=== PATIENT | male | born 1970 | race Caucasian/White ===

== ENCOUNTER 2017-02-11 09:42 | Observation (INO) ==
[2017-02-11] MEDS ORDERED: ZOFRAN ONE (11:04)
[2017-02-11] MEDS ORDERED: MORPHINE ONE (11:05)
[2017-02-11] MEDS ORDERED: TYLENOL PO PRN (11:12)
[2017-02-11] MEDS ORDERED: MORPHINE IV PRN ×2 (11:12→12:51)
[2017-02-11] MEDS ORDERED: PHENERGAN IV PRN ×2 (11:12→18:59)
[2017-02-11] MEDS: NS 1,000 ML IV SCH ×2 (11:12→19:56)
[2017-02-11] MEDS ORDERED: ZOFRAN IV PRN (11:12)
[2017-02-11] MEDS ORDERED: SODIUM CHLORIDE 0.9% INJ PRN (11:12)
[2017-02-11 11:18] LABS: MANUAL DIFF NEEDED? NO
[2017-02-11 11:21] LABS: BASO% 0.3 % (0.0-0.8); EOS# 0.06 X1000 (0.0-0.7); EOS% 0.8 % (0.0-10.0); HEMATOCRIT 44.6 % (42.0-52.0); IMM GRAN# 0.04 X1000 (0.0-0.04); IMM GRAN% 0.5 % (0.0-0.5); LYMPH# 1.14 X1000 (1.2-3.4); MCH 32.1 PG (27-31); MCHC 35.9 g/dL (33-37); MCV 89.4 FL (81-99); MONO# 0.64 X1000 (0.11-0.59); MONO% 8.4 % (1.7-9.3); MPV 10.5 FL (7.4-10.4); PLT 209 X1000 (130-400); RBC 4.99 XMIL (4.7-6.1)
[2017-02-11 11:39] LABS: AGAP 11; BUN 14 mg/dL (8-22); CALCIUM 9.4 mg/dL (8.8-10.2); CHLORIDE 102 mmol/L (98-107); COSMO 280; POTASSIUM 4.2 mmol/L (3.5-5.1); SODIUM 140 mmol/L (136-145); TCO2 27 mmol/L (25-35)
[2017-02-11 11:47] LABS: URINE CULTURE NEEDED? NO; URINE MICRO REVIEW NEEDED? NO; URINE SOURCE CLEAN CATCH
[2017-02-11 11:56] LABS: BILIRUBIN URINE NEGATIVE (NEGATIVE); BLOOD URINE LARGE (NEGATIVE); COLOR YELLOW; GLUCOSE URINE NEGATIVE (NEGATIVE); LEUKOCYTES URINE NEGATIVE (NEGATIVE); NITRITE URINE NEGATIVE (NEGATIVE); PROTEIN URINE 30 mg/dL (NEGATIVE); SP GRAVITY URINE 1.023; TURBIDITY URINE CLEAR (CLEAR); UROBILINOGEN URINE NORMAL (NORMAL)
[2017-02-11 11:57] LABS: UR EPITHELIAL CELLS <10 /HPF (<10); URINE BACTERIA NEGATIVE /HPF; URINE RBC TNTC /HPF (<10); URINE WBC <10 /HPF (<10)
--- NOTE | 2017-02-11 12:09 | Diag Imaging Result Doc PS360 ---
EXAM: CT RENAL STONE SEARCH INDICATION: LEFT FLANK PAIN WITH HISTORY OF STONES TECHNIQUE: Dose reduction protocol was used. COMPARISON: 03/21/2015 FINDINGS: There is minimal subsegmental atelectasis at the lung bases. There is a cluster of fine nodules at the left lung base that can be seen on a previous study dated 01/05/2014 and are most compatible with granulomata. There are several calcified granulomata in the spleen. The liver, gallbladder, adrenal glands, and pancreas are unremarkable. There is bilateral nephrolithiasis including an obstructing stone at the left UPJ that measures up to 10 mm in the greatest axial dimension. There is mild to moderate left hydronephrosis and left perinephric stranding consistent with obstructive uropathy. However, no definite this stone was also present in the same place and there is also hydronephrosis on the previous study from 2014. This stone probably intermittently obstructs the UPJ. No other obstructing stones are identified along the courses of the ureters. The urinary bladder is largely nondistended and is essentially unremarkable, otherwise. The appendix is normal. The GI tract is essentially unremarkable. IMPRESSION: 1.Bilateral nephrolithiasis with an obstructing 10 mm stone at the left UPJ with associated mild to moderate left hydronephrosis indicating obstructive uropathy. Please see the above discussion. 2.Other incidental/nonacute findings detailed above. Electronically signed by Bubba Hawley 02/11/2017 12:07 PM
[2017-02-11] MEDS: FLOMAX PO SCH (12:20)
[2017-02-11] MEDS ORDERED: MORPHINE IV ONE (12:29)
[2017-02-11] MEDS ORDERED: DILAUDID IV PRN (18:57)
--- NOTE | 2017-02-12 03:34 | HISTORY AND PHYSICAL ---
DATE: 02/11/2017 CHIEF COMPLAINT: Left flank pain. HISTORY OF PRESENT ILLNESS: Mr. Ezio Oliver is a 46-year-old gentleman with a history of recurrent nephrolithiasis. He was hospitalized in March of 2015 with a distal obstructing stone and hydronephrosis. He underwent extracorporeal shockwave lithotripsy, as well as he presented to the hospital this morning complaining of sudden onset of left flank pain with radiation of pain into his groin. At times he has had difficulty voiding. He has not seeing any gross blood. He denied any nausea or vomiting. A CT IVP demonstrated bilateral nephrolithiasis with an obstructing 10 mm stone at the left UPJ, with associated mild to moderate left hydronephrosis. PAST MEDICAL HISTORY: Recurrent nephrolithiasis. PAST SURGICAL HISTORY: 1. I and D of a peritonsillar abscess. 2. Microdiscectomy at L5-S1. 3. Multiple lithotripsies. ALLERGIES: No known drug allergies. FAMILY HISTORY: Father had hypertension and embolic cerebrovascular accident. SOCIAL HISTORY: He does not smoke. He does consume alcoholic beverages. He is and has 3 children. MEDICATIONS: No routine medications. REVIEW OF SYSTEMS: He denies any recent weight gain or weight loss.HEENT: No loss of visual or auditory acuity. Cardiovascular: No chest pain, palpitations, or anginal equivalents. Pulmonary: No shortness of breath, paroxysmal nocturnal dyspnea, or orthopnea. Gastrointestinal: No reflux, dysphagia, melena, hematochezia, change in bowel habits, or rectal bleeding. Endocrine: No polyuria, no polydipsia. No cold or heat intolerance. Skin: No easy bruisability. /Rectal Exam: Deferred. Neurologic: Nonfocal. PHYSICAL EXAMINATION: Vital signs: Temperature 97.9 degrees, pulse 59, respirations 18, blood pressure 143/71. General Appearance: This is a well-developed, well-nourished, 46-year-old gentleman in no apparent distress. He does have significant left-sided flank pain. Neck: Supple. No masses, jugular venous distention, or bruits. Cardiovascular: Regular rate and rhythm. Lungs: Clear. Abdomen: Soft, nontender, with active bowel sounds. Back: Left costovertebral angle tenderness. and Rectal Exam: Deferred. Extremities: Without edema. Neurologic: Nonfocal. A CBC demonstrated a white count of 7.6, hemoglobin 16, hematocrit 44, and a platelet count of 209,000. Electrolytes demonstrated the following: Sodium 140, potassium 4.2, chloride 102, BUN 14, creatinine 1.2. Urinalysis demonstrated large blood. ASSESSMENT AND PLAN: Distal left ureteral stone with obstruction and left-sided hydronephrosis. I am going to admit the patient to [facility]. I will rehydrate him with normal saline at 125 mL/h. We will treat his nausea on a p.r.n. basis with Zofran. We will use morphine 2-4 mg IV q.4 hours p.r.n. pain. Because of the size of the obstructing stone, I do not believe that he will be able to pass it. Potentially he would benefit from lithotripsy. We have consulted Dr. Garza to see him. I will check a uric acid, PTH, and serum calcium today. He has had previously elevated uric acid levels and took allopurinol. He has been off the allopurinol for several months. In anticipation that he will undergo surgery later today, I am holding Lovenox. Given his clinical presentation, I believe that admission to the hospital is reasonable and necessary. Hydronephrosis can lead to acute renal failure. His creatinine was 1.2. He requires fluids and aggressive pain management. At this point in time, I anticipate that he will be in the hospital for only 1 midnight and I will; therefore, place him in outpatient status with observation services. cc: Steffany Pinzon MD
--- NOTE | 2017-02-12 05:07 | CONSULTATION ---
DATE OF CONSULTATION: 02/11/2017 ATTENDING AND REFERRING PHYSICIAN: Quentin Pinzon MD HISTORY OF PRESENT ILLNESS: This is a 46-year-old male with long history of renal lithiasis, developed severe left flank pain with nausea and vomiting. Evaluation with a CT stone search revealed small bilateral renal stones and a 10 mm stone at the left ureteral pelvic junction that was obstructing. The patient has had shockwave lithotripsy previously. The last time, in 2014. He denies any voiding problems. He may have had blood in his urine. PAST MEDICAL HISTORY: Renal lithiasis. Otherwise negative. CURRENT MEDICATIONS: Documented on the chart and include Flomax. PAST SURGICAL HISTORY: Tonsillectomy, shockwave lithotripsy. SOCIAL HISTORY: No tobacco use. Social use of alcohol. ALLERGIES: No known drug allergies. REVIEW OF SYSTEMS: Usually in good health. He denies any problems with heart disease, strokes, seizures, pulmonary, or bowel problems. He has no history of diabetes. PHYSICAL EXAMINATION: General: A well-developed, well-nourished, age apparent, white male, oriented in all ways and cooperative. HEENT: Normal for age. Lungs: Clear. Cardiovascular: Regular rate and rhythm. Abdomen: Flat, soft, nontender. No hepatosplenomegaly or masses. Normal bowel sounds. Back: Mild left CVA tenderness. : Normal male. Both testes down. Scrotal exam is normal. Extremities: No clubbing, cyanosis, or edema. Neuro: No focal deficits. DATA: CT scan is as noted in the History of Present Illness. LABORATORY EVALUATION: He has a white count of 7.61, hemoglobin 16.0, hematocrit of 44.6, platelets are 209,000. Serum electrolytes are normal. BUN 14, creatinine 1.2. Urinalysis has [id number]-[id number]-rv-count red cells per high-powered field and less than 10 white cells. Dipstick for bacteria were negative. IMPRESSION: 1. Bilateral renal stones. 2. Obstructing left ureteropelvic junction stone. RECOMMEND: Cystoscopic exam and place left double-J stent. This will relieve his severe left flank pain. He will then be scheduled for left extracorporeal shockwave lithotripsy. This was discussed with the patient and . They seemed to understand and desire to proceed. The planned procedure, benefits versus risks and possible complications, including, but not limited to, bleeding, infection, not being able to break up the stone, need for further stone surgery was discussed. cc: MD Steffany Shah MD
[2017-02-12] MEDS ORDERED: XYLOCAINE-MPF 2% ONE (07:05)
[2017-02-12] MEDS ORDERED: DIPRIVAN 1% ONE (07:05)
[2017-02-12] MEDS ORDERED: REGLAN ONE (07:18)
[2017-02-12] MEDS ORDERED: PEPCID ONE (07:19)
[2017-02-12] MEDS ORDERED: KEFZOL 1 GM/D5W 1 GM/50 ML IVPB ONE (07:32)
[2017-02-12] MEDS ORDERED: DECADRON ONE (07:50)
[2017-02-12] MEDS ORDERED: ZOFRAN ONE (07:51)
--- NOTE | 2017-02-12 08:46 | Diag Imaging Result Doc PS360 ---
EXAM: FLUOROSCOPY CYSTO INDICATION: LT. STENT PLACEMENT TECHNIQUE: COMPARISON: 01/02/2013 FINDINGS: 38 spot fluoroscopic images were provided, which were performed during left ureteral stent placement by Dr. Donta Garza. The obstructing stone at the left UPJ seen on a recent CT is identified. On the final image, the newly placed left ureteral stent is identified in the expected position. IMPRESSION: As above, please correlate with live fluoroscopic imaging. Electronically signed by Bubba Hawley 02/12/2017 8:44 AM
[2017-02-12] MEDS ORDERED: DITROPAN PO PRN ×2 (08:58→09:01)
[2017-02-12] MEDS ORDERED: ZYLOPRIM PO SCH (09:00)
[2017-02-12] MEDS ORDERED: PERIDEX MT SCH (09:00)
[2017-02-12] MEDS ORDERED: PERCOCET-5 PO PRN (09:03)
[2017-02-12] MEDS: FLOMAX PO SCH (09:42)
[2017-02-12] MEDS ORDERED: FLUZONE QUAD 2017-2018 SYRINGE IM ONE (10:39)
[2017-02-12 12:14] VITALS: BP 117/77
--- NOTE | 2017-02-13 04:46 | OPERATIVE NOTE ---
PROCEDURE DATE: 02/12/2017 SURGEON: Donta Garza MD PREOPERATIVE DIAGNOSIS: Left ureteropelvic junction stone with moderate obstruction. POSTOPERATIVE DIAGNOSIS: Left ureteropelvic junction stone with moderate obstruction. PROCEDURE PERFORMED: Cystoscopic exam. Placed left double-J stent. ANESTHESIA: General via laryngeal mask. FINDINGS: Cystoscopic exam: Urethra-greater than 21 Portuguese, without stricture. Prostate-mild hypertrophy of the lateral lobes. Elevated bladder neck, length approximately 3.5 to 4 cm. Bladder-normal ureteral orifices bilaterally. No papillary lesions. No trabeculations. No diverticula. Fluoroscopic exam revealed an approximate 12 mm left UPJ stone. INDICATIONS FOR PROCEDURE: This 46-year-old male with long history of renal lithiasis developed left flank pain. Evaluation revealed an obstructing left UPJ stone. DESCRIPTION OF PROCEDURE: After informed consent was obtained the patient, him receiving IV antibiotics, he was taken to the main OR cystoscopy room and placed in the supine position. General anesthesia via laryngeal mask was achieved. He was then placed in the low lithotomy position and prepped and draped in the usual sterile fashion for cystoscopic exam. A 21-Portuguese sheath cystoscope was passed through the patient's urethra, prostate, and into the bladder without difficulty. Findings are as noted above. A 0.035 zip wire was passed through the cystoscope, engaged left ureteral orifice, and advanced up the ureter. When it came to this stone, it required much manipulation to push the wire past the stone. A 6-Portuguese, 26 cm double-J stent was passed over the zip wire and it also required much manipulation before the stent pushed the stone back into the renal pelvis. The wire was removed. The stent appeared in good position. The stent removal string was removed. The bladder was drained. Cystoscope was removed. Rectal exam was performed that revealed a prostate of about 35-40 g, smooth, and symmetric. He tolerated the procedure well. ESTIMATED BLOOD LOSS: Zero. He was taken to recovery room in good condition. cc: MD Steffany Shah MD
--- NOTE | 2017-02-13 06:47 | DISCHARGE SUMMARY ---
ADMISSION DATE: 02/11/2017 DISCHARGE DATE: 02/12/2017 DISCHARGE DIAGNOSIS: Bilateral nephrolithiasis with an obstructing 10 mm stone at the left ureteropelvic junction, with associated mild to moderate left hydronephrosis. DISCHARGE INSTRUCTIONS: 1. The patient has been instructed to call Dr. Nirav Garza on Wednesday in order to set up surgical time for an extracorporal sound wave lithotripsy of the aforementioned stone. 2. Activity as tolerated. 3. Regular diet. 4. Medications: Allopurinol 300 mg daily, Percocet 5 one p.o. q.4-6 hours p.r.n. pain, Ditropan 5 mg q.8 hours p.r.n. bladder spasms, Flomax 0.4 mg daily for 7 days. DISCHARGE PHYSICAL EXAMINATION: General Appearance: This is a well-developed, well-nourished, 46- year-old, gentleman in no apparent distress. Vital Signs: He is afebrile. Vital signs are stable. Cardiovascular: Regular rate and rhythm. Lungs: Clear. Abdomen: Soft, nontender, with active bowel sounds. REFERRING PHYSICIAN: Mr. Ezio Oliver was admitted to [facility] with a distal obstructing 10 mm left ureteral stone at the left UPJ, with mild to moderate hydronephrosis. The patient was admitted for fluid resuscitation and pain management. Dr. Garza was consulted to see the patient and he recommended cystoscopy with placement of a left double-J stent. Postoperatively, his course was uncomplicated. He was able to tolerate regular food without nausea or vomiting. He was able to void. He was passing flatus. His pain was well controlled on oral medications. He will need further extracorporal sound wave lithotripsy of the aforementioned stone and the patient has been instructed to contact Dr. Garza office on Wednesday to set-up that procedure. He has had a history of recurrent nephrolithiasis. Serum calcium and PTH were within normal limits. His uric acid was mildly elevated and I have started allopurinol 300 mg daily. Having reached maximum hospital benefit, the patient was discharged in stable condition. cc: Steffany Pinzon MD
== END 2017-02-12 01:15 | disposition home or self-care (01) ==
LOC: DIRADM → 4N 10:53
PROVIDERS: ADMIT Internal Medicine; ATTEND Internal Medicine